=== PATIENT | female | born 1985 | race Two or more races ===

== ENCOUNTER 2025-03-01 15:19 | Emergency (ER) | payer OTHER, SELFPAY ==
[2025-03-01 15:24] VITALS: BP 105/68
--- NOTE | 2025-03-01 16:27 | ED.MUSCINJ ---
HPI-Injury
General
Chief Complaint: Fall
Source: patient and family (son)
Time Seen by Provider: 03/01/25 16:11
Nursing documentation reviewed up to this point in time: agreed with
History of Present Illness-Injury
Is this injury a work related problem?: No
Is pt an associate of [facility]?: No
Initial Injury comments:
Patient states she slipped on mud and fell onto bottom last week. Complains of pain to coccyx. Brought to ED by son for eval.
Past History
Past History
ED Past Medical History: None
ED Past Surgical History: None
Review of Systems
Review of Systems
Allergies reviewed?: Yes
All Other Systems: ROS reviewed and negative except as documented in HPI and ROS
Constitutional: Reports no symptoms
EENT: Reports no symptoms
Respiratory: Reports no symptoms
Cardiac: Reports no symptoms
ABD/GI: Reports no symptoms
: Reports no symptoms
Musculoskeletal: Reports joint pain (pain to coccyx)
Skin: Reports no symptoms
Neurological: Reports no symptoms
Psychiatric: Reports no symptoms
Musculoskeletal Injury Exam
Musculoskeletal Injury Exam
coccyx:
Pain with Movement?: Moderate
Tender to palpation?: Moderate
Soft tissue swelling?: None
External deformity and angulation?: None
Joint effusion?: None
Contusion?: Moderate
Hematoma-local bleeding into tissue?: None
Strain- Sprain- Tear (Connective tissue injury)?: None
Crepitus with movement?: No
Joint instability?: No
Malalignment/deformity?: No
Range of motion: Full
Distal skin color and temperature: normal-warm & good color
Capillary Refill: normal
Normal distal neurovascular exam?: Yes
Phy Exam
General Physical Exam
General Presentation: well appearing and no apparent distress
General age: appears stated age
General Skin: warm and dry
General Habitus: normal
General Mental: alert
General Hydration: appears well hydrated
Musculoskeletal Exam
Musculoskeletal Exam: neuro vasc intact
Skin Exam
Skin Exam: normal color, warm/dry and no rash
Psychiatric Exam
Psychiatric Exam: normal mood/affect
Injury Course
Orders/Labs/Results
Orders:
Orders
03/01/25 16:26
Coccyx/Sacrum, 2 View CR [CR Sacrum/coccyx Min 2 View] Urgent
Comment:
Reason For Exam: fall, pain
*Radiology
Radiology exam reviewed: radiology read reviewed
*Pulse Oximetry
Patient hypoxic: no
*Critical Care Note
Total Time (30-74mins, 75-104mins- exclusive of procedures): Not Applicable
ED Attending Note
-
Portions of this chart may have been created with voice recognition software.� Occasional wrong word or��sound alike� substitutions may have occurred due to the inherent limitations of voice recognition software.
Discharge Plan
Departure
Patient Disposition: Home (Routine Discharge)
Date of Disposition: 03/01/25
Time of Disposition: 18:00
Patient with high blood pressure during this ER visit?: No
Condition: Good
Covid-19: Not Applicable
Discharge Problem:
Closed fracture of coccyx
Instructions: Contusion (DC), Coccyx Injury ED, Cold therapy for pain
Prescriptions:
New
oxycodone 5 mg capsule
5 mg PO Q4H PRN (Reason: Pain) Qty: 10 0RF
Referrals:
Marsha James MD [Family Provider] - Tomorrow
Interventions
Interventions:
*Risk Screen - Suicide Last Done: 03/01/25 16:09
*General Assessment Last Done: 03/01/25 16:09
*Neglect/Abuse Screening Last Done: 03/01/25 16:09
*ED COVID-19 Vaccine History Last Done: 03/01/25 16:09
*Nursing Disposition Last Done: 03/01/25 18:13
ED-Musculoskeletal Assessment Last Done: 03/01/25 16:09
ED- Neurological Assessment Last Done: 03/01/25 16:09
ED-Skin Assessment Last Done: 03/01/25 16:09
Discharge Date and Time
Discharge Date/Time: 03/01/25 18:14
Print Language: UGANDAN
== END 2025-03-01 18:14 | disposition home or self-care (01) ==
LOC: EMR 15:19
PROVIDERS: EMERGENCY PHYSICIAN Emergency Medicine; FAMILY PHYSICIAN Family Medicine
DX: S32.2XXA Fracture of coccyx, initial encounter for closed fracture (principal); S30.0XXA Contusion of lower back and pelvis, initial encounter; W01.0XXA Fall on same level from slipping, tripping and stumbling without subsequent striking against object, initial encounter
CPT/HCPCS: 99283; 72220